=== PATIENT | male | born 1995 ===

== ENCOUNTER 2019-04-08 21:58 | Outpatient (REF) | payer BC, SELFPAY ==
[2019-04-08 22:09] LABS: Absolute Basophil Count 0.01 k/cumm (0.0-0.2); Absolute Eosinophil Count 0.11 k/cumm (0.0-0.7); Absolute Lymphocyte Count 1.82 k/cumm (1.2-3.4); Absolute Monocyte Count 0.41 k/cumm (0.11-0.7); Absolute Neutrophil Count 2.94 k/cumm (1.2-6.7); Basophils % 0.2; Eosinophils % 2.1; HCT 42.1 % (40.0-50.0); HGB 14.9 g/dL (13.5-17.5); Lymphocytes % 34.4; Mean Corp. HGB Concentration 35.4 g/dL (32.0-36.0); Mean Corpuscular Hemoglobin 29.7 pg (27.0-33.0); Mean Corpuscular Volume 83.9 fL (80-95); Mean Platelet Volume 9.4 fL (8.0-11.0); Monocytes % 7.8; Neutrophils % 55.5; Platelet Count 187 x1000/uL (130-400); RBC 5.02 m/cumm (4.50-6.00); RBC Distribution Width 12.5 % (11.8-14.1); White Blood Cell Count 5.29 k/cumm (4.4-10.8)
[2019-04-08 22:39] LABS: Anion Gap 9.5 mmol/L (3-11); BUN 14 mg/dL (7-18); CO2 29.5 mmol/L (21.0-32.0); CREATININE 0.96 mg/dL (0.70-1.30); Calcium 9.4 mg/dL (8.5-10.1); Chloride 103 mmol/L (98-107); Glucose 79 mg/dL (74-106); Potassium 3.7 mmol/L (3.5-5.1); Sodium 142 mmol/L (136-145); TSH 4.32 uIU/mL (0.36-3.74)
== END 2019-04-08 22:18 ==
LOC: NCHCN 21:58
PROVIDERS: PCP Family Medicine; Visit Provider Nurse Practitioner Family
DX: Z00.00 Encounter for general adult medical examination without abnormal findings (principal); Z13.0 Encounter for screening for diseases of the blood and blood-forming organs and certain disorders involving the immune mechanism; Z13.29 Encounter for screening for other suspected endocrine disorder
CPT/HCPCS: 80048; 84443; 85025

== ENCOUNTER 2019-06-09 17:35 | Outpatient (REF) | payer BC, SELFPAY ==
[2019-06-09 20:58] LABS: TSH 2.79 uIU/mL (0.36-3.74)
[2019-06-15 12:05] LABS: IgA 192 mg/dL (85-499); Tissue Transglutaminase IgA <1.2 U/mL (<4.0)
== END 2019-06-09 17:55 ==
LOC: NCHCN 17:35
PROVIDERS: PCP Family Medicine; Visit Provider Nurse Practitioner Family
DX: R10.9 Unspecified abdominal pain (principal); R94.6 Abnormal results of thyroid function studies
CPT/HCPCS: 82784; 83516; 84443